=== PATIENT | male | born 1960 | race Caucasian/White ===

== ENCOUNTER 2022-04-16 14:49 | Emergency (ER) | payer OTHER ==
[~2022-04-16] VITALS: Ht 172.7 cm; Wt 99.8 kg
--- NOTE | 2022-04-16 15:05 | NUR ---
BIB [facility] 88 FROM WORK,C/O PALPITATION,SHOWED SVT ON THE MONITOR WHEN EMS ARRIVED,CONVERTED TO TO NSR AFTER ADENOSINE 6 MG WAS GIVEN. PT ATTACHED TO MONITOR, VITALS ARE WITHIN NORMAL LIMITS, HEART RATE RANGES FROM 90-100BPM. AWAITING MD DOMINGUEZ.
[2022-04-16] MEDS ORDERED: CHOL100043 PO (15:23)
[2022-04-16] MEDS ORDERED: BICT1TAB PO (15:23)
[2022-04-16] MEDS ORDERED: ROSU40TA PO (15:23)
[2022-04-16] MEDS ORDERED: ASPI-1169 PO (15:23)
[2022-04-16] MEDS ORDERED: LOSA50TA39 PO (15:23)
[2022-04-16] MEDS ORDERED: CYAN500T9 PO (15:23)
[2022-04-16] MEDS ORDERED: LAMO150T6 PO (15:23)
[2022-04-16] MEDS ORDERED: METO25TA3 PO (15:23)
[2022-04-16 15:48] LABS: BASOPHILS % (AUTO) 0.5 % (0.0-2.0); EOSINOPHILS % (AUTO) 3.5 % (0.0-6.0); HEMATOCRIT 42 % (39-51); HEMOGLOBIN 14.6 g/dL (13.5-17.5); LYMPHOCYTES # (AUTO) 2.3 K/uL (0.8-4.8); LYMPHOCYTES % (AUTO) 24.3 % (20.0-44.0); MEAN CORPUSCULAR HGB CONC 35 g/dl (31.0-36.0); MEAN CORPUSCULAR VOLUME 91 fL (80-96); MONOCYTES # (AUTO) 0.8 K/uL (0.1-1.30); MONOCYTES % (AUTO) 8.6 % (2.0-12.0); NEUTROPHILS % (AUTO) 63.1 % (43.0-81.0); PLATELET COUNT (AUTO) 189 K/uL (150-450); RED BLOOD CELL COUNT(AUTO) 4.62 MIL/uL (4.5-6.0); WHITE BLOOD COUNT (AUTO) 9.4 K/uL (4.3-11.0)
[2022-04-16 15:55] LABS: CALCIUM, SERUM 8.7 mg/dL (8.5-10.1); CARBON DIOXIDE 25 mmol/L (21-32); CHLORIDE 105 mmol/L (98-107); CREATININE 1.2 mg/dL (0.6-1.3); GLUCOSE 113 mg/dL (74-106); POTASSIUM 6.1 mmol/L (3.5-5.1); SODIUM SERUM 137 mmol/L (136-145); UREA NITROGEN, BLOOD 14 mg/dL (7-18)
[2022-04-16] MEDS ORDERED: IV NS 0.9% 1,000 ML BAG IV ONE (16:30)
[2022-04-16 18:41] LABS: CALCIUM, SERUM 8.7 mg/dL (8.5-10.1); CREATININE 1.2 mg/dL (0.6-1.3); POTASSIUM 3.8 mmol/L (3.5-5.1)
--- NOTE | 2022-04-16 19:29 | NUR ---
Patient does not wish to proceed with medical care recommended by Dr. TREVIZO . Patient given information related to possible complications, up to and including , which could occur as a result of leaving the hospital at this time. Patient verbalizes understanding of risks involved due to leaving against medical advice. Patient has signed AMA form.
[2022-04-16] MEDS ORDERED: ASPIRIN 325 MG TABLET ONE (19:30)
[2022-04-16] MEDS ORDERED: ASPIRIN 81 MG TAB.CHEW PO ONE (19:30)
[2022-04-16 23:19] VITALS: BP 137/88
== END 2022-04-16 19:33 | disposition left against medical advice (07) ==
LOC: ER 14:49
DX: I47.1 Supraventricular tachycardia (principal); R77.8 Other specified abnormalities of plasma proteins; I10 Essential (primary) hypertension; Z88.0 Allergy status to penicillin; Z88.1 Allergy status to other antibiotic agents; Z79.899 Other long term (current) drug therapy; Z79.82 Long term (current) use of aspirin
CPT/HCPCS: 99285; 96360; 71045; 93005 ×2; 85025; 80048 ×2; 83735; 36415; 84484 ×2; J7030